=== PATIENT | male | born 1955 | race Caucasian/White ===

== ENCOUNTER 2024-08-18 06:35 | Day surgery (SDC) | payer MEDICARE, SELFPAY ==
[2024-08-16 08:54] VITALS: BMI 22.8
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
--- OUTSIDE RECORDS SUMMARY | 2024-08-17 12:26 | XMS_ITS ---
Author Organization [facility] Address [address] [place] [address] Care Team Providers Care Parts Casting Machine Operator Name Role Phone SHIVANI HOWARD Primary Care Provider Rosendo Mcclure [phone] REASON FOR VISIT just finished med for fungus/future procedure Encounters Encounter Location Date Provider Diagnosis [facility] [address] [place] [address] 08/12/2024 Rosendo Herman Plan Of Treatment Next Appt Details Provider Name:Rosendo Herman , 08/18/2024 07:30:00 AM, [address] [place] [address] , [place], [place], [phone], Progress Notes * RUBIA DURON ADOB:[birth year] (69 yo M)Acc No.[id number]:08/12/2024 Patient:?RUBIA DURON :1955???Age:69 Y???Sex:Male Address:[place], [address] * true * Date:? Generated for Printi asif/Liz/eTransmitting on:?08/17/2024 12:25 PM EDT
--- OUTSIDE RECORDS SUMMARY | 2024-08-17 12:26 | XMS_ITS ---
Author Organization [facility] Address [address] [place] [address] Care Team Providers Care Molecular Biology Scientist Name Role Phone SHIVANI HOWARD Primary Care Provider Rosendo Mcclure [phone] REASON FOR VISIT Patient Portal Encounters Encounter Location Date Provider Diagnosis [facility] [address] [place] [address] 05/06/2024 Rosendo Herman Plan Of Treatment Next Appt Details Provider Name:Rosendo Herman , 08/18/2024 07:30:00 AM, [address] [place] [address] , [place], [place], [phone], Progress Notes * RUBIA DURON ADOB:[birth year] (69 yo M)Acc No.[id number]:05/06/2024 Patient:?RUBIA DURON :1955???Age:69 Y???Sex:Male Address:[address] [place], [address] * true * Date:? Generated for Printi asif/Liz/eTransmitting on:?08/17/2024 12:25 PM EDT
[2024-08-18 07:03] VITALS: BMI 20.9; BMI 21.0
[2024-08-18 07:09] VITALS: BP 122/75; PULSE 73; RESP 15; TEMP 36.4; O2SAT 100
--- NOTE | 2024-08-18 07:16 | PC.NURSE ---
Last dose of Tumeric and Gingo biloda 08/09/24
[2024-08-18] MEDS: Lactated Ringers 1,000 ML 100 ML IVCONT (07:23)
[2024-08-18 08:25] VITALS: BP 105/71; PULSE 63; RESP 18; TEMP 36.1; O2SAT 100
--- NOTE | 2024-08-18 08:31 | PM.OP ---
Brief Operative Note Date of Service: 08/18/24 Pre-op diagnosis: Screening Post-op diagnosis: other (Polyp) Procedure: Colonoscopy to the cecum with bx/removal of polyp Surgeon: Rosendo Herman MD Anesthesia: MAC Was an Commonwealth Attorney used for this Procedure?: No Estimated blood loss (mL): 2.0 Pathology: other (A. Polyp at 30cm) Condition: stable Disposition: PACU
[2024-08-18 08:40] VITALS: BP 130/69; PULSE 57; RESP 18; TEMP 36.5; O2SAT 100
--- NOTE | 2024-08-18 09:36 | OP_ITS ---
DATE OF SERVICE: 08/18/2024 SURGEON: Rosendo Herman MD INDICATIONS: The patient presents for evaluation of colorectal cancer screening and personal history of tubular adenoma of the colon. Full consent has been obtained from him for this, including risks of bleeding and perforation. PREOPERATIVE DIAGNOSIS: POSTOPERATIVE DIAGNOSIS: PROCEDURE PERFORMED: Colonoscopy to cecum with biopsy and removal of polyp. ESTIMATED BLOOD LOSS: COMPLICATIONS: ANESTHESIA: Medications used, monitored anesthesia care. ASSISTANTS: SPECIMENS: PREOPERATIVE DIAGNOSES: Colorectal cancer screening and personal history of tubular adenoma of the colon. POSTOPERATIVE DIAGNOSES: Colorectal cancer screening and personal history of tubular adenoma of the colon, small colon polyp, diverticulosis, and internal hemorrhoids. DESCRIPTION OF PROCEDURE: The patient was placed in the left lateral decubitus position. The digital rectal exam revealed no abnormalities. The Olympus video pediatric colonoscope was entered into the rectum and advanced easily to the cecum. Once in the cecum, I did identify normal-appearing cecal pouch with appendiceal orifice and a normal-appearing ileocecal valve. The entire cecum and ileocecal valve appeared normal. The scope was slowly withdrawn assessing all mucosal surfaces carefully. For the most part, preparation was excellent throughout the colon, although there were some small areas of liquid stool, which were irrigated and suctioned away. At 30 cm was a flat, approximately 3 or 4 mm polyp, which was biopsied and completely removed with a cold biopsy forceps. I did not visualize any other polyps, colitis, nor angiodysplasia. There was a mild amount of sigmoid diverticulosis. In the rectum, scope was retroflexed visualizing internal hemorrhoids, but no other pathology. The rectal mucosa appeared normal. Scope was straightened and withdrawn from the patient. He tolerated the procedure well and was returned to the recovery area in stable condition. IMPRESSION: 1. Small colon polyp. 2. Diverticulosis. 3. Internal hemorrhoids. PLAN: The results of the biopsies will be checked. I would recommend a repeat colonoscopy in 5 years. He will otherwise see me on a p.r.n. basis. This has been discussed with his . MD KALEB Velarde/GERDA / [id number]
== END 2024-08-18 09:15 | disposition home or self-care (01) ==
PROVIDERS: PCP Family Medicine; Visit Provider Internal Medicine
PROC: 0DJD8ZZ Inspection of Lower Intestinal Tract, Via Natural or Artificial Opening Endoscopic (ICD-10-PCS; CPT 45378; principal; 2024-08-18 07:30)
DX: Z12.11 Encounter for screening for malignant neoplasm of colon (principal); Z86.0101 Personal history of adenomatous and serrated colon polyps; K63.5 Polyp of colon; K57.30 Diverticulosis of large intestine without perforation or abscess without bleeding; K64.8 Other hemorrhoids; I10 Essential (primary) hypertension; Z79.899 Other long term (current) drug therapy; Z79.890 Hormone replacement therapy; Z88.8 Allergy status to other drugs, medicaments and biological substances; Z98.890 Other specified postprocedural states
CPT/HCPCS: 45380; 88305; J2003; J2704